=== PATIENT | female | born 1965 | race Asian ===

== ENCOUNTER 2019-12-07 18:49 | Emergency (ER) | payer OTHER ==
[~2019-12-07] VITALS: Ht 160 cm; Wt 56.7 kg
[2019-12-07 19:00] VITALS: BP 163/90; Ht 160 cm; Wt 56.7 kg
== END 2019-12-07 23:03 | disposition left against medical advice (07) ==
LOC: ED 18:49
DX: R10.9 Unspecified abdominal pain (principal); R11.10 Vomiting, unspecified
CPT/HCPCS: 36415; 87804